=== PATIENT | male | born 1955 | race Caucasian/White ===

== ENCOUNTER 2017-06-04 11:30 | Inpatient (IN) | payer BC ==
[~2017-06-04] VITALS: Ht 328.4 cm; Wt 114.0 kg
--- NOTE | ~2017-06-04 | ESTC ---
Cardiac Perfusion Imaging Demographics Patient Name VALERIY Grace Gender Male Patient Number [id number] Race Visit Number [id number] Ethnicity Corporate ID Room Number G3201 Accession Number [id number] Height 852 inches Date of 1955 Weight 230 pounds Tamiko Interpreting Veronica Date of study 06/07/2017 Physician Tamiko Supervising /ANTONELLA LAURENT Technologist Kevin Morrison Ordering Physician Veronica Stress Tamiko library technician Stress ECG Reading Veronica Nurse Jazmin Bo Physician Tamiko RN Cecilia Meek RN Procedure Procedure Type: Nuclear Stress Test:Pharmacological, Lexiscan, Cardiolite Stress Test Procedure Start time: 06/07/2017 08:30 Indications: Non-sustained VTach. Risk Factors The patient risk factors include:physical activity, treated hypercholesterolemia, treated hypertension and dyslipidemia. Conclusions Summary Perfusion Images: The overall quality of the study is good. Left ventricular cavity is noted to be normal on the stress and rest studies. There is no evidence of abnormal lung activity. The right ventricle is not visualized and cannot be assessed. Stress SPECT images demonstrate medium size area of severe decrease uptake in the area involving the inferolateral wall. Rest SPECT images demonstrate mild decrease in tracer uptake in inferolateral wall. . Gated SPECT imaging reveals normal myocardial thickening and wall motion. The left ventricular ejection fraction was calculated to be 63%. Impression ECG portion of the stress test is clinically negative for ischemia by diagnostic criteria. Myocardial perfusion imaging is moderately abnormal. Images reveal a medium sized area of moderate to severe partially reversible inferolateral wall perfusion defect consistent with ischemia with possible infarct. Gated wall motion is normal with LVEF 63%. This is a low to intermediate risk stress test. Stress Protocols Resting ECG Sinus rhythm Pre-stress physical exam: Patient assessed by Dr Booker prior to testing. Predicted HR: 160 bpm ECG Findings No ECG changes suggestive of ischemia. No ECG changes suggestive of ischemia. Arrhythmias No rhythm abnormality. Symptoms Shortness of breath. Resolved spontaneously Stress Interpretation ECG portion of stress test is negative for ischemia by diagnostic criteria. Nuclear images are pending. Imaging Results Summed scores - Summed stress score: 15 - Summed rest score: 12 - Summed difference score: 3 Stress ejection Ejection fraction:62 % EDV :136 ml ESV :51 ml Stroke volume :85 ml LV mass :148 gr Imaging Protocols Rest Stress Isotope:Tc99m Sestamibi IV Isotope: Tc99m Sestamibi IV Isotope dose:10 mCi Isotope dose:31.3 mCi Date:06/07/2017 07:00 Date:06/07/2017 09:33 Technique: SPECT Technique: Gated Supine SPECT Supine IV remains in place after procedure. Scan Time:45-60 minutes post Scan Time:45-60 minutes post injection injection Procedure Medications - Regadenoson (Lexiscan) 0.4 mg IV over 10-15 sec. I.V. 0.4 mg. Medical History Admission Data Admission date: 06/04/2017 Admission Time: 11:43 Hospital Status: Inpatient. Signatures dtt: TAMIKO BOOKER dtd: 06/07/17 0830 Physician Self Edit
--- NOTE | ~2017-06-04 | CATH ---
Cardiac Diagnostic Report Demographics Patient Name VALERIY CASILLAS Gender Male N Date of 1955 Age 61 year(s) Patient Number [id number] Date of Study 06/08/2017 Visit Number [id number] Room Number G6326 [place] [id number] Ht 2164.08 cm Wt 104.33 kg Referring Tricia Mas Primary Physician Physician Performing Yerra Secondary Physician Physician Tamiko Diagnostic Mackrra Assisting Physician Physician Tamiko Interventional Physician Urologist Md Physician Findings and Conclusions Diagnostic Findings and Conclusion Rt dominant L main: No significant epicardial disease LAD:No significant epicardial disease L CX: No significant epicardial disease RCA mid: 20% stenosis. Diagnostic Recommendations Medical therapy Procedure Description The patient was brought to the diagnostic cardiac catheterization-EP laboratory in the fasting, non-sedated state. Informed consent was obtained in the written and verbal form after the risks and benefits were explained. The patient had no further questions and agreed to proceed. The planned puncture-incision site(s) were shaved and prepped with ChloraPrep and draped in the usual sterile manner. Conscious sedation, supplemental oxygen, and pain control medications were delivered by a registered nurse under physician guidance. Surface ECG rhythm, blood pressure measurement, and pulse oximetry were monitored throughout the procedure. Arterial access.Rt radial artery access was attempted but was unsuccessful. The access site on rt inguinal area was infiltrated with lidocaine. The vessel was entered with the Seldinger technique. A sheath was advanced into the vessel and used for catheter placement. Selective left coronary angiography. A catheter was advanced into the left coronary vessel ostium under Fluoroscopic guidance. Contrast was injected by hand. Images were obtained in multiple projections. Selective right coronary angiography. A catheter was advanced into the right coronary vessel ostium under fluoroscopic guidance. Contrast was injected by hand. Images were obtained in multiple projections. Arterial artery hemostasis was achieved. The patient was transferred to a regular nursing floor via cart accompanied by a nurse. The patient left the laboratory in stable condition. Diagnostic Cath Status: Elective Procedure Procedure Type Diagnostic procedure:Angiography:, Coronary Angios Indications: NSVT. The procedure was explained in detail to the patient. Risks, complications and alternative treatments were reviewed. Written consent was obtained. Medications Reviewed with Patient prior to Procedure. Angiographic Findings Dominance: Right Cardiac Arteries and Lesion Findings LMCA: Normal (0% Stenosis). LAD: Normal (0% Stenosis). LCx: Normal (0% Stenosis). RCA: Abnormal.20% mild with luminal irregularities Lesion on Mid RCA: 20% stenosis . Coronary Tree Procedure Data Procedure Date Date: 06/08/2017Start: 01:15 PMEnd: 02:42 PM Entry Locations - Retrograde Percutaneous access was performed through the Right Femoral artery (Primary location). A 6 Fr sheath was inserted. Hemostasis was successfully obtained using Angio-Seal STS PLUS ([facility]). Procedure Medications Order and Administration + + + +-------+ !Time !Medication !Dosage !Route ! + + + +-------+ !06/08/2017 01:02 PM !Oxygen !2 l/min !NC ! + + + +-------+ 06/08/2017 01:09 PM !Versed !1 mg !I.V. ! + + + +-------+ 06/08/2017 01:09 PM !Fentanyl !50 mcg !I.V. ! + + + +-------+ !06/08/2017 02:31 PM !Oxygen ! !NC ! + + + +-------+ Devices Used - A5 Fr. BS JL 3.5 Diag. Catheterwas used for:Left coronary angiography. - A5 Fr. BS JR 4 Diag. Catheterwas used for:Right coronary angiography. Contrast Material - Isovue 74858 ml Fluoroscopy Time: Diagnostic: 2:54 minutes. Total: 2:54 minutes. Fluoroscopy Dose: Diagnostic: 851 mGy. Total: 851 mGy. Estimated Blood Loss: 5 ml. Medical History Performed Procedures and Imaging Results - Stress testing with SPECT MPIwas performed. Results were: Positive. Risk/Extent of ischemia was: Intermediate risk. Allergies - No known allergies. Risk Factors The patient risk factors include:physical activity, treated hypercholesterolemia, treated hypertension, last creatinine: 0.9 mg/dl, creatinine clearance: 128.8 ml/min and dyslipidemia. Admission Data Admission Date: 06/04/2017 Admission Time: 11:43 AM Admit Source: Other Insurance Payors: Private health insurance. Clinical Evaluation Leading to Procedure - The patient's CAD presentation was assessed as: Unstable angina. - The patient's anginal syndrome during the past two weeks was assessed as: Class IV according to the [place] Cardiovascular [employer] Classification System (CCS). Hemodynamics Condition: Rest O2 Consumption: Estimated: 1639.51Heart Rate: 79 bpm Pressures (mmHg) +-----+ + !Site !Pressure ! +-----+ + !AO !122/64 (89) ! +-----+ + Shunts Oxygen Values O2 Capacity 153.68 O2 Consumption 1639.51 Signatures dtt: TAMIKO BOOKER dtd: 06/08/17 1315 Physician Self Edit
--- NOTE | ~2017-06-04 | DS ---
PATIENT'S NAME: URBANO OLSEN [facility] AGE: 61 Y [address] ROOM: G6326 [place], [place] [address] LOCATION: GPCU ADMIT DATE: 06/04/2017 Discharge Summary DISCHARGE DATE: 06/09/2017 FAMILY PHYSICIAN: Gigi Clarke MD ATTENDING PHYSICIAN: Lloyd Bal FINAL DIAGNOSES: 1. Fall. 2. Right trimalleolar ankle fracture dislocation. 3. Right ankle syndesmosis disruption. 4. Hypertension, essential. 5. Nonsustained ventricular tachycardia. 6. History of hyperlipidemia. OPERATIONS: 1. Open reduction and internal fixation of right trimalleolar ankle fracture dislocation. 2. Open reduction and internal fixation of right syndesmosis disruption. 3. Arthroscopically aided fixation of right trimalleolar ankle fracture dislocation. 4. Extensive arthroscopic debridement, synovitis, chondroplasty, at tibial plafond, talar dome, and medial and lateral gutters. 5. Use of intraoperative fluoroscopy. HOSPITAL COURSE: The patient came in after falling off his tractor and breaking his right ankle. He was seen in consultation by Dr. Lloyd Bal, Orthopedic Surgeon, and I was asked to follow him from a medical standpoint because I am his primary care physician in the outpatient arena. The night before surgery, we put a Holter monitor on, and checked his electrolytes in the morning prior to surgery because on admission he had a low sodium, low potassium, and on telemetry in the middle of night, he had a 12- beat run of nonsustained ventricular tachycardia. I was aware of this, the patient went through his operation without any apparent complication and without any intervention, but I did consult Dr. Martin, the burglar alarm superintendent on- call for [facility] [place] [facility] postop. Dr. Martin saw Urbano Olsen and recommended a Lexiscan stress test prior to dismissal. This was done and the patient flunk that test. The patient was then taken to the Splitter Operator a couple of days prior to dismissal and was found to have nonobstructive coronary artery disease. The patient gradually improved enough, he went home on the date shown. He was dismissed on the med list shown. He has been advised by Dr. Martin in regard to his Cardizem and other heart medications. The patient is to see me back in the office in a week for followup, check his electrolytes, and see how he is PATIENT'S NAME: URBANO OLSEN [facility] AGE: 61 Y [address] ROOM: G6326 [place], [place] [address] LOCATION: [facility] ADMIT DATE: 06/04/2017 Discharge Summary DISCHARGE DATE: 06/09/2017 FAMILY PHYSICIAN: Gigi Clarke MD ATTENDING PHYSICIAN: Lloyd Bal doing in regard to blood pressure. Second, he is to follow up with the recommendations per Dr. Bal and Dr. aMrtin. If the patient's chest pain, palpitations, syncope, further falling spells, increasing pain, or drainage from his wound, he is to be seen earlier. GIGI CLARKE MD COIL WINDER/modl /[id number] CC: Lloyd Bal MD d: 06/11/17811 t: 06/24/17 1849, DISCHARGE SUMMARY
--- NOTE | ~2017-06-04 | OR ---
PATIENT'S NAME: VINNY OLSEN [facility] AGE: 61 Y [address] ROOM: [place] [address] [place] [facility] [place]: 06/04/2017 OR/Procedure Report DISCHARGE DATE: FAMILY PHYSICIAN: GIGI BENNETT MD ATTENDING PHYSICIAN: LISA SHARIF SURGEON: Lisa Sharif MD FINISH MACHINE TENDER: Wilfredo Shi PA-C. DATE OF PROCEDURE: 06/05/2017 POSTOPERATIVE DIAGNOSES: 1. Right trimalleolar ankle fracture dislocation. 2. Right ankle syndesmosis disruption. POSTOPERATIVE DIAGNOSES: 1. Right trimalleolar ankle fracture dislocation. 2. Right ankle syndesmosis disruption. PROCEDURE: 1. Open reduction and internal fixation of right trimalleolar ankle fracture dislocation. 2. Open reduction and internal fixation of right syndesmosis disruption. 3. Arthroscopically aided fixation of right trimalleolar ankle fracture dislocation. 4. Extensive arthroscopic debridement of synovitis and chondroplasty at tibial plafond and talar dome and medial and lateral gutters. 5. Use of intraoperative fluoroscopy, less than 1 hour. 6. Placement of short-leg splint intraoperatively. ANESTHESIA: Spinal anesthesia with peripheral nerve block. SPECIMEN: None. TOURNIQUET: Right proximal thigh 250 mmHg for 120 minutes. ESTIMATED BLOOD LOSS: Minimal. SPECIMEN: None. COMPLICATIONS: None. DISPOSITION: Stable in PACU. COUNTS: All counts correct. IMPLANTS: Synthes right distal fibular periarticular locking plate and screws PATIENT'S NAME: VINNY OLSEN [facility] AGE: 61 Y [address] ROOM: [place] [address] [place] [facility] [place] DATE: 06/04/2017 OR/Procedure Report DISCHARGE DATE: FAMILY PHYSICIAN: GIGI BENNETT MD ATTENDING PHYSICIAN: LISA SHARIF and two Synthes Mitek suture anchors and screws for syndesmosis fixation. INDICATIONS: Mr. Olsen is a 61-year-old gentleman who underwent the noted procedures above. The risks, benefits, and alternatives pursuing surgical intervention were discussed with the patient in detail. He elected to proceed with surgery as noted above. Anesthesia was consulted for their perioperative evaluation of the patient. I marked the patient's right lower extremity indicating correct surgical site. DESCRIPTION OF PROCEDURE: The patient was brought from the holding area the operating room. A time-out was performed. A spinal anesthetic was administered. Perioperative antibiotics were administered for prophylaxis. The right lower extremity was prepped and draped in a sterile fashion. I turned my attention the right ankle. I began with a transfibular incision to access the lateral aspect of the ankle. The incision was carried through skin, subcutaneous tissue, muscle fascia down to bone. I debrided the fibula fracture. I introduced intraoperative fluoroscopy to determine the level of the fracture. I used two hlgyk-zw-tkfli clamps to reduce the fibula, once the fibula was out to length. I confirmed this fluoroscopically. I drilled for, measured, and placed a lag screw in the fibula. I then placed a plate and pinned it in place provisionally. I confirmed its position fluoroscopically. I began distally by placing compression screw to suck the plate down to bone. Once I achieved distal fixation, I drilled for, measured, and placed locking screws to achieve multiple points of fixed angle fixation in the plate. Once I had distal fixation, I drilled for, measured, and placed three screws proximal to the fracture site to achieve 6 cortices of fixation. I confirmed the reduction of the fibula fluoroscopically. The fibula was out to length. The fracture was reduced. The lag screw was in place. With my physician rn first assistant, dorsiflexing the ankle under fluoroscopic guidance, I drilled for, measured, and placed 2 screws to reduce my syndesmosis. I sequentially tightened them to reduce the syndesmosis which also improved the medial joint space. I closed down the gap where there was medial joint space widening. I turned my attention to the posterior malleolus. Posterior malleolus was also reduced when the fibula was brought out to length and the reduction was near anatomic. I turned my attention the medial aspect of the ankle. There was a large palpable defect at the medial malleolus. I made a surgical incision over the medial malleolus through skin and subcutaneous tissue, down to the deltoid ligament complex. The deltoid ligament had avulsed from the medial malleolus. Using a fluoroscopy, I identified the medial malleolus. I rasped the surface with the deltoid ligament avulsed. Under fluoroscopic guidance, I drilled for PATIENT'S NAME: VINNY OLSEN [facility] AGE: 61 Y [address] ROOM: [address] [place], [place] [address] [place] [facility] [place]: 06/04/2017 OR/Procedure Report DISCHARGE DATE: FAMILY PHYSICIAN: GIGI BENNETT MD ATTENDING PHYSICIAN: LISA SHARIF and placed two suture anchors. The Orthocord was passed through the deltoid and ligamentum was repaired. My rn first assistant held the ankle in a dorsiflexed and inverted position to take the tension off the deltoid ligament complex. I then began by making an incision at the ankle just anterior medial to the tibialis anterior. I introduced my arthroscope to the ankle joint. There was significant synovitis present, a fat pad anteriorly, as well as debris in the medial and lateral gutters. I then introduced my shaver into the anterolateral portal. I performed an extensive debridement of the synovitis anteriorly along with the fat pad, along with the synovitis, and debris in the medial and lateral gutters. I debrided the syndesmosis arthroscopically as well as the deltoid ligament medially. The ankle did appear stable and there was a restraint. Bending the arthroscope from driving into the clear space between the medial talus and medial aspect of the medial malleolus. There was also no widening of the syndesmosis while driving this arthroscope in the lateral gutter. 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 I performed a chondroplasty of the tibial plafond and at the talar dome to address that. The arthroscope was removed and all the fluid was extravasated from the joint. All the surgical incisions were irrigated and closed in layers. Final fluoroscopic image revealed a successful open reduction and internal fixation of right trimalleolar ankle fracture, near anatomic alignment. No evidence of new fracture or dislocation. Sterile dressings were placed in the form of Xeroform, followed by 4x4 and Webril. The patient was then placed into a short-leg splint with the ankle in neutral dorsiflexion and inversion. The patient was then transferred from the operating room table onto the stretcher and brought to the recovery room in stable condition. There were no intraoperative complications noted. Of note, my PA, Wilfredo Shi PA-C, played an integral role in the intraoperative care of this patient today. This included preoperative positioning, intraoperative expert retraction, and closing and splinting functions. IMPRESSION: The patient is status post the noted procedures above. PLAN: The patient will be nonweightbearing on the right lower extremity. He will be encouraged to rest, ice, and elevate the leg going forward. Postoperative antibiotics were administered per routine. Postoperative pain PATIENT'S NAME: VINNY OLSEN [facility] AGE: 61 Y [address] ROOM: [place] [address] [place] [facility] [place]: 06/04/2017 OR/Procedure Report DISCHARGE DATE: FAMILY PHYSICIAN: GIGI BENNETT MD ATTENDING PHYSICIAN: LISA SHARIF control in the form of Percocet and IV morphine as needed for pain. He does have a spinal in place. The hospitalist will continue to manage the patient's concomitant medical comorbidities. Physical Therapy and Occupational Therapy will be consulted for early ambulation and prevention of deconditioning. I will continue to follow the patient closely in the postoperative period. MD JOCE JAMES/modl /[id number] d: 06/05/17 1617 t: 06/07/17 0824, OPERATIVE SUMMARY
--- NOTE | ~2017-06-04 | CON ---
PATIENT'S NAME: VINNY OLSEN [facility] AGE: 61 Y [address] ROOM: [place] [address] [place] [facility] [place]: 06/04/2017 Consultation DISCHARGE DATE: FAMILY PHYSICIAN: GIGI CLARKE MD ATTENDING PHYSICIAN: LISA SHARIF REFERRING PHYSICIAN: Gigi Clarke MD REASON FOR CONSULTATION: Nonsustained ventricular tachycardia. HISTORY OF PRESENT ILLNESS: Mr. Olsen is a pleasant 61-year-old male, with history of hypertension and asthma. The patient stated 2 days ago while he was getting out of tractor, he slipped and fell and developed swelling in the right ankle and subsequently was found to have fracture of right ankle. 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 The patient denied any chest pain. He has off and on episodes of dizziness, however, denied any syncopal episodes. He also denied any history of palpitations. He has chronic mild shortness of breath due to his asthma and uses inhalers. 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 REVIEW OF SYSTEMS: The patient denied any recent change in vision. No history of nausea or vomiting. No history of diarrhea or constipation. No history of fever. No history of significant weight gain or weight loss. No history of palpitations. No history of syncopal episodes. The patient has history of occasional dizziness. Review of other systems was essentially negative. PAST MEDICAL HISTORY: History of asthma, on inhalers, and history of prostate cancer, status post surgery. SOCIAL HISTORY: The patient stated he is engaged. He lives with his fiancee. PERSONAL HISTORY: Nonsmoker. He has occasional alcoholic drinks. FAMILY HISTORY: The patient stated that his grandfather had an OK at age of 65. No other family history of premature coronary artery disease. PHYSICAL EXAMINATION: GENERAL: The patient is awake, alert, and oriented and in no distress. PATIENT'S NAME: VINNY OLSEN [facility] AGE: 61 Y [address] ROOM: [place] [address] [place] [facility] [place]: 06/04/2017 Consultation DISCHARGE DATE: FAMILY PHYSICIAN: GIGI CLARKE MD ATTENDING PHYSICIAN: LISA SHARIF VITAL SIGNS: His pulse rate is 71 beats per minute, blood pressure is 154/76, and respiratory rate 18. HEENT: His head is atraumatic and normocephalic. Oral mucosa is moist. NECK: No significant jugular venous distention is present. CARDIOVASCULAR: S1 and S2 are audible. They are regular in rate and rhythm. No audible murmur is present. RESPIRATORY: Bilateral vesicular breath sounds are audible with prolonged expiration. Bilateral expiratory wheezing is audible. ABDOMEN: Soft and nontender. Bowel sounds are present. EXTREMITIES: Right leg is in support. Left lower extremity has no significant pedal edema. NEUROLOGIC: The patient is awake, alert, and oriented. No focal neurological deficits noted. SKIN: Warm and dry. LABORATORY DATA: Sodium 135, potassium 3.8, chloride 98, CO2 of 29, glucose 111, BUN 11, and creatinine 0.9. His potassium level was 3.3 yesterday. Magnesium 2.2 in 2010. White blood cell count 7.4, hemoglobin 13.8, hematocrit 37, and platelet count 206. His EKG done yesterday showed sinus rhythm at 63 beats per minute, possible old inferior infarct. ASSESSMENT: 1. Nonsustained ventricular tachycardia, 12-beat run. 2. Hypertension. 3. Hypokalemia. 4. Hyponatremia. 5. Fracture, right ankle. 6. Chronic obstructive pulmonary disease/bronchial asthma. 7. Hypertension. PLAN: In view of hypertension, we will start the patient back on amlodipine. He was on amlodipine 10 mg a day as an outpatient. We will start the patient on 5 mg a day to make room for beta blockers. In view of nonsustained ventricular tachycardia episode, we will start the patient on metoprolol and titrate dose as tolerated by his heart rate and blood pressure. We will monitor potassium level and replace potassium. We will also check magnesium level. The patient was also on hydrochlorothiazide as an outpatient with potassium supplements. In view of episode of nonsustained ventricular tachycardia, we will obtain 2D echocardiogram. Depending on hospital course, we will consider stress test as outpatient to evaluate for ischemia. The patient apparently had cardiac catheterization in 2010, we will request for those records. Other PATIENT'S NAME: VINNY OLSEN Sanjay [facility] AGE: 61 Y [address] ROOM: [address] [address] [place] [facility] [place]: 06/04/2017 Consultation DISCHARGE DATE: FAMILY PHYSICIAN: GIGI CLARKE MD ATTENDING PHYSICIAN: LISA SHARIF recommendations as written in chart. Management of fracture per Orthopedics. We will follow the patient along with you. Thank you, Dr. Clarke for allowing us in taking part in the care of this pleasant patient. The plan of care was discussed with the patient. MD BRYNN RAMIREZ/modl /[id number] d: 06/05/17 1649 t: 06/11/17 1626, CONSULTATION REPORT
--- NOTE | ~2017-06-04 | ECHO ---
Transthoracic Echocardiography Report (TTE) Demographics Patient Name VINNY CROOKS Date of Study 06/06/2017 N Patient Number [id number] Visit Number [id number] Date of 1955 Room Number G3201 [facility] [id number] Gender Male Number Age 61 year(s) Referring Veronica Rehab Manager Shira uHizar [facility], Physician Tamiko RVT Calin Alcocer Md Physician Interpreting Veronica Morrison Ict Development Manager Physician Supervising Ordering Veronica Morrison MD/MLP Physician Nurse Stress Case Operator Conclusions Summary Technically difficult study with suboptimal apical images The estimated left ventricular ejection fraction is 55-60%. Mild concentric left ventricular hypertrophy. Diastolic function indeterminate due to inadequate tissue doppler evaluation. The left atrium is mildly dilated by LA volume index measurement. The right atrium is mildly dilated. Dilated IVC with <50% inspiratory collapse consistent with elevated RA pressure. There is mild pulmonary hypertension. The estimated pulmonary pressure (RVSP) is 49 mmHg. Mild tricuspid regurgitation by color Doppler. Procedure Type of Study TTE procedure:2D Echocardiogram. Procedure Date Date: 06/06/2017 Start: 09:10 AM Study Location: Inpatient Portable Technical Quality: Adequate visualization Additional Indications:post op arrhythmia Appropriate Use Criteria: 9 Patient Status: Routine Rhythm: Within normal limits HR: 70 bpm M-Mode/2D Measurements LV Diastolic Dimension: 6.13 cm LV Systolic Dimension: 4.26 cm LV Septum Diastolic: 1.25 cm LV PW Diastolic: 1.13 cm AO Root Dimension: 2.2 cm Cardiac Output: 6.86 l/min LA Dimension: 4.3 cm LVOT: 2.2 cm IVC Inspiration: 1.8 cm LVOT VTI: 25.8 cm RV Base: 45.33 cm LV Stroke volume: 98.02 ml RV Length: 7.66 cm TAPSE: 2.77 cm TDI-S': 19 cm/s Doppler Measurements AV Peak Velocity: 1.7 m/s MV Peak E-Wave: 1.05 m/s AV Peak Gradient: 11.56 mmHg MV Peak A-Wave: 0.62 m/s AV Mean Gradient: 6 mmHg MV E/A Ratio: 1.7 LVOT Peak Velocity: 1.2 m/s MV P1/2t: 58 msec MV Deceleration Time: 173 msec TR Gradient:39.44 mmHg PV Peak Velocity: 1.19 m/s Estimated RAP:15 mmHg PV Peak Gradient: 5.66 mmHg Estimated RVSP: 54 mmHg Estimated PASP: 54.44 mmHg E' Septal Velocity: 0.09 m/s A' Septal Velocity: 0.13 m/s MV E/E' Ratio: 12 Findings Left Ventricle The estimated left ventricular ejection fraction is 55-60%. Mild concentric left ventricular hypertrophy. Diastolic function indeterminate due to inadequate tissue doppler evaluation. Right Ventricle Grossly normal right ventricle structure and function. Left Atrium The left atrium is mildly dilated by LA volume index measurement. Right Atrium The right atrium is mildly dilated. Dilated IVC with poor inspiratory collapse consistent with elevated RA pressure. Mitral Valve Mild mitral regurgitation by color Doppler. Mild mitral annular calcification. Aortic Valve The aortic valve is mildly sclerotic. Tricuspid Valve There is mild pulmonary hypertension. The estimated pulmonary pressure (RVSP) is 43 mmHg. Mild tricuspid regurgitation by color Doppler. Pulmonic Valve Trivial pulmonic valve regurgitation by color Doppler. The pulmonic valve is not well visualized. Pericardial Effusion No evidence of pericardial effusion. Miscellaneous Visualized portions of the aortic root and ascending aorta appear normal in size. Pleural Effusion No evidence of pleural effusion. Signature dtt: TAMIKO BOOKER dtd: 06/06/17 0910 Physician Self Edit
--- NOTE | ~2017-06-04 | HP ---
PATIENT'S NAME: VINNY CROOKS [facility] AGE: 61 Y [address] ROOM: [place] [address] LOCATION: [facility] ADMIT DATE: 06/04/2017 History & Physical DISCHARGE DATE: 06/09/2017 FAMILY PHYSICIAN: Gigi Clarke MD ATTENDING PHYSICIAN: Lloyd Bal DATE OF SERVICE: CHIEF COMPLAINT: Fall and right ankle swelling. HISTORY OF PRESENT ILLNESS: The patient is a healthy 61-year-old male, whom I know in the outpatient arena, who presented to the emergency room today after falling off a tractor. He was found in the emergency room to have a right trimalleolar ankle fracture with dislocation and syndesmotic disruption. I have been asked to see him because I am his primary care physician for preop clearance. When I see the patient, he is resting quietly in bed with his foot up in the air. He has a brace on. He has not complained of any other injury. He did not have in my opinion any cardiac or neurologic reason for the fall. Simply stepped off a tractor and felt a pop in his right ankle. The when I see him has no contraindications to surgery by history, exam. He is known to have hypertension, hyperlipidemia, but he has had no recent NC. No chest pain with exertion. No history of pulmonary embolus. He is a nonsmoker. MEDICATIONS: Noted and reviewed. ALLERGIES: NOTED. SOCIAL HISTORY: As mentioned. Does not smoke. FAMILY HISTORY: No problems with bleeding disorder or general anesthesia. PREVIOUS OPERATIONS: See nurse's notes. IMMUNIZATIONS STATUS: Up-to-date for age. PATIENT'S NAME: VINNY CROOKS [facility] AGE: 61 Y [address] ROOM: [place] [address] LOCATION: [facility] ADMIT DATE: 06/04/2017 History & Physical DISCHARGE DATE: 06/09/2017 FAMILY PHYSICIAN: Gigi Clarke MD ATTENDING PHYSICIAN: Lloyd Bal REVIEW OF SYSTEMS: HEENT: He has had no visual changes, ear ache, or sore throat. ENDOCRINE: He is not diabetic nor is he hypothyroid. LUNGS: No history of asthma. HEART: History of hypertension. No recent NC, history of hyperlipidemia. GI: No recent nausea, vomiting, or diarrhea. No history of reflux. No melena. No weight loss. : No dysuria or frequency. EXTREMITIES: As above. NEUROLOGIC: No history of recent seizure or syncope or epilepsy. SKIN: No recent rashes. MENTAL STATUS: No recent depression or anxiety. PHYSICAL EXAMINATION: GENERAL: A pleasant dark haired male, lying in bed with his foot up with the brace on. He is oriented to person, place, and time. VITAL SIGNS: Noted. HEENT: Shows pupils react to light. TMs not visualized. Posterior pharynx clear. NECK: Unremarkable. Thyroid not enlarged. LUNGS: Clear without wheeze or rub. HEART: Shows no murmur, gallop, or rub. ABDOMEN: Benign without point tenderness. PELVIC: Not done. RECTAL: Not done. EXTREMITIES: Show brace along the right ankle with a right ankle elevated. NEUROLOGIC: Cranial nerves intact. No lateralizing signs. MENTAL STATUS: Normal for age. No april anxiety, depression that I see. ASSESSMENT: 1. Fall, ground level. 2. Resultant right trimalleolar fracture with dislocation. 3. Hypertension, essential. 4. Hyperlipidemia. PLAN: As above. GIGI CLARKE MD CRM MARKETING MANAGER/modl PATIENT'S NAME: VINNY CROOKS [facility] AGE: 61 Y [address] ROOM: [place] [address] [facility] AD[facility] DATE: 06/04/2017 History & Physical DISCHARGE DATE: 06/09/2017 FAMILY PHYSICIAN: Gigi Clarke MD ATTENDING PHYSICIAN: Lloyd Bal /[id number] D: [id number] T: [id number] HISTORY & PHYSICAL
--- NOTE | ~2017-06-04 | CON ---
PATIENT'S NAME: VINNY CROOKS [facility] AGE: 61 Y [address] ROOM: [place] [address] [place]: [facility] [place] DATE: 06/04/2017 Consultation DISCHARGE DATE: FAMILY PHYSICIAN: GIGI BENNETT MD ATTENDING PHYSICIAN: LISA SHARIF ADDENDUM: PLAN: In view of bronchial asthma with active bronchospasm, we will avoid beta blockers. We will start the patient on Cardizem 30 mg q.6 hours and titrate dose as tolerated for blood pressure control and nonsustained ventricular tachycardia. We will make further recommendations depending on echo results. MD BRYNN RAMIREZ/sarika /[id number] d: 06/05/17 1336 t: 06/11/17 1632, CONSULTATION REPORT
[2017-06-04] MEDS ORDERED: CRESTOR20 MG PO (12:35)
[2017-06-04] MEDS ORDERED: LEXAPRO10 MG PO (12:35)
[2017-06-04] MEDS ORDERED: NORVASC10 MG PO (12:35)
[2017-06-04] MEDS ORDERED: PRILOSEC20 MG PO (12:36)
[2017-06-04] MEDS ORDERED: OLMESARTAN-HCT1 EACH PO (12:36)
[2017-06-04] MEDS ORDERED: HYDRODIURIL25 MG PO (12:37)
[2017-06-04] MEDS ORDERED: K-TAB ER20 MEQ PO (12:37)
[2017-06-04] MEDS ORDERED: NORCO 5-325 TA1 EACH PO (12:38)
[2017-06-04] MEDS ORDERED: PROAIR HFA8.5 GM INH (12:39)
[2017-06-04] MEDS ORDERED: ALEVE220 MG PO (12:39)
[2017-06-04] MEDS ORDERED: CALCIUM 500 +1 EACH PO (12:39)
[2017-06-04 13:19] LABS: BASOPHIL # 0.1 K/uL (0.0-0.2); BASOPHIL % 0.7 %; EOSINOPHIL # 0.1 K/uL (0.0-0.5); EOSINOPHIL % 1.5 %; HEMOGLOBIN 13.8 g/dL (11.0-16.0); IMMATURE GRANULOCYTE # 0.1 K/uL (0.0-0.3); IMMATURE GRANULOCYTE % 0.7 %; LYMPHOCYTE # 1.9 K/uL (0.8-4.0); LYMPHOCYTE % 25.1 %; MCH 31.8 pg (27.0-34.0); MCHC 37.3 gm/dL (32.0-36.5); MCV 85.3 fl (83.0-98.0); MONOCYTE # 0.6 K/uL (0.0-1.0); MONOCYTE % 7.5 %; MPV 9.2 fl (9.4-12.4); NEUTROPHIL # (ANC) 4.8 K/uL (1.4-9.0); NEUTROPHIL % 64.5 %; NRBC % 0 /100WBC (0-0.00); PLATELET COUNT 206 K/uL (150-450); RBC 4.34 M/uL (3.50-5.50); RDW-CV 12.2 % (11.9-14.6); WBC 7.4 K/uL (4.0-11.0)
[2017-06-04 13:28] LABS: INR - (THERAPEUTIC) 0.99 (0.92-1.07); PROTIME 10.4 SECONDS (9.8-11.4); PTT 25 SECONDS (25-32)
[2017-06-04 13:31] LABS: ANION GAP 12.3 (10.0-19.0); BLOOD UREA NITROGEN 11 mg/dL (6-24); CALCIUM 8.3 mg/dL (8.5-10.5); CHLORIDE 92 mMol/L (96-110); CO2 28 mMol/L (22-32); CREATININE 0.9 mg/dL (0.6-1.3); POTASSIUM 3.3 mMol/L (3.7-5.1); SODIUM 129 mMol/L (135-145)
--- NOTE | 2017-06-04 13:50 | NUR ---
Patient is 61 yo male admitted this afternoon after being seen in Dr. Shi's office for a fractured right ankle that he sustained last evening when he was getting off his tractor. States he caught his foot on the bottom step and fell off. states he knew it was fractured, had to crawl back up into the tractor to get his phone to call for help. 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 education is given as documented. advanced directive booklet is given. patient and family deny questions. pneumatic is on left calf. pt tiffany well. call light is within reach. patient denies needs at this time. report is given to HUGH Cade.
--- NOTE | 2017-06-04 17:02 | NUR ---
Significant Event:Here from office around 1215.Stepped off tractor step wrong & broke his ankle.Is to have surgery tomorrow.Rt.lower leg/ankle is wrapped,can wiggle toes & they are warm.Up to BR with use of walker,does well.Eating & drinking well. is going to stay all night in room.Is pleasant.Had 2 Percocets at 1243 & 1653 which really helped his ankle pain. Follow up:
--- NOTE | 2017-06-05 04:49 | NUR ---
Significant Event: PATIENT IS ALERT AND ORIENTED. AMBULATES WITH STAND BY ASSIST GB WALKER. PLAN IS TO GO DOWN TO SURGERY IN AM PATIENT HAS BEEN NPO SINCE 0000. ON TELE NO CALLS. VSS WNL ON RA. IS IN ROOM. HAD PERCOCET 2 TABS X2 LAST DOSE AT 0322 FOR ANKLE PAIN. PLEASANT AND COOPERATIVE WITH CARES Follow up:
[2017-06-05 05:11] LABS: ALBUMIN 3.4 gm/dL (3.5-5.0); ANION GAP 11.8 (10.0-19.0); BLOOD UREA NITROGEN 11 mg/dL (6-24); CALCIUM 8.8 mg/dL (8.5-10.5); CHLORIDE 98 mMol/L (96-110); CO2 29 mMol/L (22-32); CREATININE 0.9 mg/dL (0.6-1.3); PHOSPHORUS 3.2 mg/dL (2.5-4.9); POTASSIUM 3.8 mMol/L (3.7-5.1); SODIUM 135 mMol/L (135-145)
--- NOTE | 2017-06-05 15:46 | NUR ---
Significant event: Returned from PACU had ORIF of right ankle. Is on telemetry. Had IV magnesium as ordered. Sensation to left midcalf and right lef to mid thigh. Denies pain. Family at bedside. Lung sounds slightly coarse.
--- NOTE | 2017-06-06 02:48 | NUR ---
SIGNIFICANT EVENT: B/P'S IN 140'S AND PULSE IN 70'S, CARDIZEM ORDERED Q6HRS WITH PARAMETERS. PERCOCET Q4HRS FOR PAIN, MORPHINE Q3HRS AND DILAUDID Q2HRS FOR PAIN. AYALA CATHETER WITH NURIA URINE. ON TELE. 2D ECHO AND EKG TODAY. NEURO CHECKS Q4HRS ON EXTREMETIES, ESPECIALLY R) LLL. IV R) WRIST WITH NS @125ML/HR. ADVANCE DIET TOLERATED.
[2017-06-06 04:42] LABS: ANION GAP 10.9 (10.0-19.0); BLOOD UREA NITROGEN 8 mg/dL (6-24); CALCIUM 7.8 mg/dL (8.5-10.5); CHLORIDE 99 mMol/L (96-110); CO2 28 mMol/L (22-32); CREATININE 0.8 mg/dL (0.6-1.3); POTASSIUM 3.9 mMol/L (3.7-5.1); SODIUM 134 mMol/L (135-145)
--- NOTE | 2017-06-06 14:51 | NUR ---
Significant event: Up to commode with 1-2 assist. Percocet 2 tabs at 0815 this am. Right leg elevated and ice to leg. CSM adequate. Family at bedside. Ordaz draining clear lucy urine. Follow-up: Stress test tomorrow am, NPO after midnight. Labs in am.
--- NOTE | 2017-06-06 17:19 | NUR ---
ASSUMED CARES FROM [facility] AT 1600. PATIENT ALERT AND ORIENTED X3. VSS. REMAINS ON 3L O2 VIA NASAL CANNULA. 2 PERCOCETS GIVEN AT 1621 FOR ANKLE PAIN. REPORTS RELIEF. AYALA INTACT DRAINGING CLEAR YELLOW URINE. PATIENT IS PLEASANT AND COOPERATIVE WITH CARES. PATIENT TO BE NPO AFTER MIDNIGHT FOR LEXISCAN IN AM. FAMILY AT BEDSIDE. DENIES ANY NEEDS AT THIS TIME.
--- NOTE | 2017-06-07 03:20 | NUR ---
Significant Event: Pt A/O. VSS on 3L O2, afebrile. Wrap to RLE, CDI. Pt reports some numbness to RLE, can wiggle toes, cap refil <3sec. Leg elevated and ice applied. NWB to RLE, up with 1PA, gaitbelt and walker. Ordaz patent. Rating pain mostly 7/10. PRN Percocet x2, last at 0100. PRN Morphine x1 at 1925. Saline lock to R wrist, no blood return and can be positional, but flushes well otherwise. Pt has been NPO since midnight for Lexiscan this am. at bedside. Follow up: Lexiscan, continue to monitor
[2017-06-07 05:03] LABS: ANION GAP 9.9 (10.0-19.0); CALCIUM 8.5 mg/dL (8.5-10.5); MAGNESIUM 2.2 mg/dL (1.8-2.6); POTASSIUM 3.9 mMol/L (3.7-5.1)
--- NOTE | 2017-06-07 10:45 | NUR ---
SPOKE TO PATIENT AND HIS S.O. AT THE BEDSIDE. INTRODUCED CM AND OUR ROLE. PATIENT LIVES IN OWN HOME AND IS PLANNING ON RETURNING HOME ONCE READY FOR DISCHARGE. HE IS HOPING TO BE DISCHARGE HOME TODAY. HE HAS CRUTCHES BUT WOULD LIKE FRONT WHEELED WALKER. I GAVE HIS S.O. A LIST OF PLACES THAT RENT DME. SHE IS GOING TO CHECK WITH ASSITIVE TECH. WILL CONT TO FOLLOW NEEDED.
--- NOTE | 2017-06-07 16:28 | NUR ---
Patient is alert and oriented, VSS, on room air. Non-weight bearing to R) leg. 1 assist with walker and gait belt. Percocet was given x1 for pain at 1054, rates pain currently at a 4. He went down for a cardiac stress test this AM. Dr. Martin told Valeria RN over the phone that he needs a heart cath tomorrow. He does not know this yet. Orlin was DC'd at 1100, still has not voided. Urinal is at bedside.
[2017-06-08 04:19] LABS: BASOPHIL % 0.3 %; EOSINOPHIL # 0.2 K/uL (0.0-0.5); EOSINOPHIL % 3.4 %; HEMATOCRIT 32.3 % (37.0-53.0); HEMOGLOBIN 11.3 g/dL (11.0-16.0); IMMATURE GRANULOCYTE # 0.1 K/uL (0.0-0.3); LYMPHOCYTE # 1.3 K/uL (0.8-4.0); LYMPHOCYTE % 21.1 %; MCH 31.4 pg (27.0-34.0); MONOCYTE # 0.5 K/uL (0.0-1.0); MONOCYTE % 8.3 %; MPV 9.2 fl (9.4-12.4); NEUTROPHIL % 65.9 %; NRBC % 0 /100WBC (0-0.00); PLATELET COUNT 195 K/uL (150-450); RDW-CV 12.8 % (11.9-14.6); WBC 6.1 K/uL (4.0-11.0)
[2017-06-08 04:23] LABS: MCV 89.7 fl (83.0-98.0)
[2017-06-08 04:28] LABS: PROTIME 10.5 SECONDS (9.8-11.4); PTT 31 SECONDS (25-32)
[2017-06-08 04:34] LABS: ALBUMIN 2.7 gm/dL (3.5-5.0); ALK PHOS 62 IU/L (33-138); ALT 22 IU/L (12-78); ANION GAP 10.9 (10.0-19.0); AST 19 IU/L (10-40); BLOOD UREA NITROGEN 13 mg/dL (6-24); CALCIUM 8.6 mg/dL (8.5-10.5); CHLORIDE 96 mMol/L (96-110); CO2 29 mMol/L (22-32); CREATININE 0.9 mg/dL (0.6-1.3); POTASSIUM 3.9 mMol/L (3.7-5.1); SODIUM 132 mMol/L (135-145); TOTAL BILIRUBIN 0.9 mg/dL (0.0-1.5); TOTAL PROTEIN 6.7 g/dL (6.0-8.4)
--- NOTE | 2017-06-08 05:01 | NUR ---
Significant Event: AAOX3. NPO SINCE MIDNOC. PIV TO LEFT FA SL. PT TO HAVE SENT PLACED THIS MORNING AT 1000. CLIP PREP WILL BE DONE AROUND 0530 TO R) WRIST AND GROIN PER MD'S INSTRUCTIONS. PT WAS ABLE TO SHOWER LAST NIGHT. AT BEDSIDE. PERCOCET ADMINISTERED X2, LAST AT 0336. DILAUDID X1 AT 0003. PT PLACED ON 2L O2/NC AT MIDNIGHT ASSESSMENT FOR SATS 84% ON RA. COOPERATIVE WITH CARES. Follow up: PAIN CONTROL, PROCEDURE
[2017-06-08 18:45] LABS: MAGNESIUM 2.1 mg/dL (1.8-2.6); POTASSIUM 3.7 mMol/L (3.7-5.1)
--- NOTE | 2017-06-08 19:09 | NUR ---
Significant Event:Patient has not had any chest pain. Did have 8 beats of V-tach at 1705. Asymptomatic. Cardiology aware and orders. Patient had been hoping to go home, but will be staying the night. Splint intact to right foot, is dry and intact, neuros normal. Has voided and is taking liquids without difficulty. Follow up:Monitor over night
--- NOTE | 2017-06-08 19:12 | NUR ---
D:Patient recieved at 1445 from cath, report given by [facility]. Patient is planning on going home this evening. Dr. Santizo did see patient while in slab stripper. Dr. Clrake said he had done dc meds, have been unable to find them. Jasson Hummel PAC contacted about pain medication and ortho dc and Dr. Martin contacted re: cardiac nedications. Report recieved from [facility]. They didn't have dc meds up there. Patient has NS infusing at 125 ml/hr. No pain at this time.P:Monitor post cath, if stable can send home,
--- NOTE | 2017-06-09 04:16 | NUR ---
Significant Event:A/Ox3. VSS on RA. Ambulates 1 assist with walker, NWB to R)leg. Up to the bathroom multiple times, good UOP. R)groin soft, no drainage noted, csm wnl. No c/o cp, percocet given q4h per patient request for R)ankle pain. Last dose at 0315. 30meq PO KCL given at shift change for K+ 3.7. AM labs pending at time of this note. Follow up:Discharge to home.
[2017-06-09 04:55] LABS: ALBUMIN 2.6 gm/dL (3.5-5.0); BLOOD UREA NITROGEN 14 mg/dL (6-24); CALCIUM 8.5 mg/dL (8.5-10.5); CHLORIDE 99 mMol/L (96-110); CO2 25 mMol/L (22-32); CREATININE 0.8 mg/dL (0.6-1.3); PHOSPHORUS 3.4 mg/dL (2.5-4.9); SODIUM 131 mMol/L (135-145)
[2017-06-09] MEDS ORDERED: LOPRESSOR25 MG PO (11:06)
[2017-06-09] MEDS ORDERED: CARDIZEM CD)(T180 MG PO (11:07)
[2017-06-09] MEDS ORDERED: MAG-OX-400(241400 MG PO (11:08)
[2017-06-09] MEDS ORDERED: COLACE100 MG PO (11:08)
[2017-06-09] MEDS ORDERED: LOVENOX 4040 MG/0.4 SUB-Q (11:10)
[2017-06-09] MEDS ORDERED: TYLENOL325 MG PO (11:12)
== END 2017-06-09 11:25 | disposition disaster alternative care site (69) | DRG 493 ==
LOC: EDSTATUS 11:30 → GMSU 11:43 → GPCU 06-08 14:53
PROVIDERS: Family Medicine; Internal Medicine Interventional Cardiology; ADMIT Orthopaedic Surgery Adult Reconstructive Orthopaedic Surgery
PROC: 0QSJ04Z Reposition Right Fibula with Internal Fixation Device, Open Approach (ICD-10-PCS; principal; 2017-06-05)
PROC: 0QSG04Z Reposition Right Tibia with Internal Fixation Device, Open Approach (ICD-10-PCS; 2017-06-05)
PROC: 0SBF4ZZ Excision of Right Ankle Joint, Percutaneous Endoscopic Approach (ICD-10-PCS; 2017-06-05)
PROC: B211YZZ Fluoroscopy of Multiple Coronary Arteries using Other Contrast (ICD-10-PCS; 2017-06-08)
PROC: 4A023N7 Measurement of Cardiac Sampling and Pressure, Left Heart, Percutaneous Approach (ICD-10-PCS; 2017-06-08)
DX: S82.851A Displaced trimalleolar fracture of right lower leg, initial encounter for closed fracture (principal); I97.89 Other postprocedural complications and disorders of the circulatory system, not elsewhere classified; I47.2 Ventricular tachycardia; E87.1 Hypo-osmolality and hyponatremia; E83.42 Hypomagnesemia; I20.0 Unstable angina; J98.11 Atelectasis; M65.871 Other synovitis and tenosynovitis, right ankle and foot; Y83.8 Other surgical procedures as the cause of abnormal reaction of the patient, or of later complication, without mention of misadventure at the time of the procedure; I10 Essential (primary) hypertension; R09.02 Hypoxemia; V84.4XXA Person injured while boarding or alighting from special agricultural vehicle, initial encounter; Z85.46 Personal history of malignant neoplasm of prostate; E87.6 Hypokalemia; J44.9 Chronic obstructive pulmonary disease, unspecified; M94.271 Chondromalacia, right ankle and joints of right foot
CPT/HCPCS: A9500; C1713; C1760; C1894; J0690; J1170; J1644; J1650; J2001; J2250; J2270; J2405; J2785; J3010; J3475; J7030